=== PATIENT | male | born 1945 ===

== ENCOUNTER 2017-02-11 08:17 | Day surgery (SDC) | payer MEDICARE ==
[2017-02-06 15:04] VITALS: BMI 32.3
[2017-02-11] MEDS ORDERED: Lactated Ringer's 1,000 ML IV ONE (09:09)
[2017-02-11] MEDS ORDERED: Dexamethasone 4 mg/1 ml ONE (11:13)
[2017-02-11] MEDS ORDERED: Propofol 10 mg/ml Inj (20 ML) ONE (11:13)
[2017-02-11] MEDS ORDERED: cefTRIAXone (Rocephin) 1 gm Inj ONE (11:19)
[2017-02-11] MEDS ORDERED: cefTRIAXone (Rocephin) 1 gm Inj IM ONE (11:35)
[2017-02-11] MEDS ORDERED: Lactated Ringer's 1,000 ML IV SCH (12:25)
[2017-02-11] MEDS: HYDROmorphone 0.5 mg/0.5 ml ISec IVP PRN ×3 (12:50→14:05)
[2017-02-11 15:05] VITALS: RESP 18
[2017-02-11 16:21] VITALS: BP 159/86; PULSE 68; TEMP 98.2; O2SAT 98
--- NOTE | 2017-02-11 22:42 | OP ---
PROCEDURE DATE: 02/11/2017 PREOPERATIVE DIAGNOSIS: Symptomatic benign prostatic hypertrophy. POSTOPERATIVE DIAGNOSIS: Symptomatic benign prostatic hypertrophy. PROCEDURE: GreenLight laser of the prostate. DESCRIPTION OF PROCEDURE: With the patient on the operating room table in dorsal lithotomy position, he was given general anesthesia. The area of the groin was draped and prepped in a sterile manner. At this time, using a laser scope under direct vision, I entered into the bladder, identified the area to be resected using laser fiber to demarcate the distal portion of the resection, which is lateral to the verumontanum. I then began to resect the adenoma and a significant part of the prostate, there were lot of prostatic calculi. They kept shorting the laser, but over time, we were able to overcome that area. At the end of the procedure, the opening from the bladder neck to the verumontanum was completely free. Verumontanum was circumferentially intact. Ureteral orifices were identified. The laser scope was removed and then a #22 3-way [place] catheter was inserted. The CBI additionally started was completely clear. Blood loss was less than 10 mL. He was taken from the operating room in good condition. Grecia Bailey MD
== END 2017-02-11 16:25 | disposition home or self-care (01) ==
LOC: H.OPSURG 08:17
PROVIDERS: ATTEND Urology
DX: N40.0 Benign prostatic hyperplasia without lower urinary tract symptoms (principal); E78.5 Hyperlipidemia, unspecified; I10 Essential (primary) hypertension; M54.9 Dorsalgia, unspecified
CPT/HCPCS: 52649; J0696; J1100; J1170; J1885; J2001; J2405; J2704; J2765; J3010; J7120